=== PATIENT | female | born 1980 | race Caucasian/White ===

== ENCOUNTER 2019-03-31 22:02 | Emergency (ER) | payer OTHER ==
[~2019-03-31] VITALS: Ht 152.4 cm; Wt 56.7 kg
[2019-03-31 22:05] VITALS: BP_SYST 121
[2019-03-31] MEDS ORDERED: LIDOCAINE/EPI 2% 1:100000 20 ML VIAL IJ ONE (22:30)
[2019-03-31] MEDS ORDERED: BACITRACIN 1 GM OINT TP ONE (22:30)
[2019-04-01 00:37] VITALS: BP_SYST 121
== END 2019-04-01 00:37 | disposition home or self-care (01) ==
LOC: SED 22:02
DX: S01.81XA Laceration without foreign body of other part of head, initial encounter (principal); F10.129 Alcohol abuse with intoxication, unspecified; Y04.0XXA Assault by unarmed brawl or fight, initial encounter; Y93.89 Activity, other specified; Y92.89 Other specified places as the place of occurrence of the external cause; Y99.8 Other external cause status
CPT/HCPCS: 99283

== ENCOUNTER 2021-08-03 01:55 | Inpatient (IN) | payer MEDICAID, SELFPAY ==
[~2021-08-03] VITALS: Ht 154.9 cm; Wt 59.0 kg
[2021-08-03] VITALS (18 sets, daily range): BP systolic 91–139
--- NOTE | 2021-08-03 02:00 | NUR ---
Placed in room 2 . Placed on desk monitor, blood pressure machine and pulse oximeter. To gown for exam. Side rails up.
--- NOTE | 2021-08-03 02:16 | NUR ---
PT BIB BLS FROM [facility] C/O INCREASING GENERALIZED WEAKNESS, VOMITING COFFEE GROUND EMESIS XTODAY, +ABDOMINAL PAIN. PT HAS A HX OF ESOPHAGEAL VARICES, CIRRHOSIS, CKD.
--- NOTE | 2021-08-03 02:27 | NUR ---
# 20 gauge angiocath placed to LAC. Use of asceptic technique. Opsite placed over site. Blood return noted. Blood for lab drawn from site. Flushed with 10 cc of normal saline. No evidence of infiltration noted. Patient tolerated well.
[2021-08-03] MEDS ORDERED: OCTREOTIDE ACETATE 50 MCG/ML AMP IVP ONE (02:30)
[2021-08-03] MEDS ORDERED: PANTOPRAZOLE SODIUM 40 MG/VIAL (PROTONIX) IVP ONE (02:30)
[2021-08-03] MEDS ORDERED: PANTOPRAZOLE SODIUM 40 MG in NS 50 ML IV ONE (02:30)
[2021-08-03] MEDS ORDERED: ONDANSETRON HCL 4 MG/2 ML VIAL IVP ONE (02:30)
[2021-08-03] MEDS ORDERED: OCTREOTIDE ACETATE 1,250 MCG in NS 243.75 ML IV ONE (02:30)
--- NOTE | 2021-08-03 02:30 | NUR ---
Dr. Torrez at bedside for MSE.
--- NOTE | 2021-08-03 02:45 | NUR ---
# 20 gauge angiocath placed to RAC. Use of asceptic technique. Opsite placed over site. Blood return noted. Flushed with 10 cc of normal saline. No evidence of infiltration noted. Patient tolerated well.
[2021-08-03] MEDS ORDERED: PANTOPRAZOLE SODIUM 40 MG/VIAL (PROTONIX) ONE ×2 (02:58→07:16)
[2021-08-03 03:00] LABS: BASOPHILS % (AUTO) 0.1 % (0.0-2.0); EOSINOPHILS % (AUTO) 0.1 % (0.0-4.0); HEMATOCRIT 24.7 % (36-48); HEMOGLOBIN 8.5 g/dL (12.0-16.0); LYMPHOCYTES # (AUTO) 0.5 K/uL (1.0-5.5); LYMPHOCYTES % (AUTO) 13.1 % (20.5-51.5); MEAN CORPUSCULAR HEMOGLOBIN 33 pg (27-31); MEAN CORPUSCULAR HGB CONC 35 % (32-36); MEAN CORPUSCULAR VOLUME 96 fL (79.0-98.0); MONOCYTES # (AUTO) 0.3 K/uL (0.0-1.0); MONOCYTES % (AUTO) 9.5 % (1.7-9.3); NEUTROPHILS # (AUTO) 2.7 K/uL (1.8-7.7); NEUTROPHILS % (AUTO) 77.2 % (40.0-70.0); PLATELET COUNT (AUTO) 100 K/uL (130-430); RED BLOOD CELL COUNT(AUTO) 2.56 MIL/uL (4.2-6.2); RED CELL DISTRIBUTION WIDTH 17.6 % (9.0-15.0); WHITE BLOOD COUNT (AUTO) 3.5 K/uL (4.8-10.8)
[2021-08-03 03:06] LABS: CALCIUM 7.1 mg/dL (8.4-11.0); CHLORIDE 86 mmol/L (98-107); CREATININE 1.74 mg/dL (0.55-1.30); GLUCOSE 140 mg/dL (70-99); POTASSIUM 3.9 mmol/L (3.5-5.1); UREA NITROGEN, BLOOD 31 mg/dL (8-21)
[2021-08-03] MEDS ORDERED: OCTREOTIDE ACETATE 200 MCG/1 ML 5ML VIAL ONE ×2 (03:08→04:24)
[2021-08-03 03:10] LABS: INR 1.3 (0.8-1.2)
[2021-08-03 03:15] LABS: ALANINE AMINOTRANSFERASE 55 U/L (12-78); ANION GAP 7 (5-15); ASPARTATE AMINOTRANSFERASE 138 U/L (10-37); LIPASE 497 U/L (73-393)
[2021-08-03 03:20] LABS: GFR AFRICAN AMERICAN 41 mL/min (>90); PROTHROMBIN TIME 13.6 SECS (9.5-12.5)
[2021-08-03 03:22] LABS: SODIUM SERUM 119 mmol/L (136-145)
[2021-08-03] MEDS ORDERED: NACL 0.9% 1,000 ML IV ONE ×2 (03:30→07:00)
--- NOTE | 2021-08-03 03:30 | NUR ---
Patient's code status is FULL CODE paperwork completed and placed in chart.
[2021-08-03] MEDS ORDERED: ONDANSETRON HCL 4 MG/2 ML VIAL ONE (04:01)
[2021-08-03] MEDS ORDERED: METOCLOPRAMIDE HCL 10 MG/2 ML VIAL ONE (04:03)
[2021-08-03] MEDS ORDERED: METOCLOPRAMIDE HCL 10 MG/2 ML VIAL IVP ONE (04:15)
[2021-08-03] MEDS ORDERED: NS 500 ML IV ONE ×2 (04:30→05:45)
[2021-08-03] MEDS ORDERED: D5NS 1,000 ML IV SCH (05:30)
[2021-08-03] MEDS ORDERED: ONDANSETRON HCL 4 MG/2 ML VIAL IVP PRN (05:30)
[2021-08-03] MEDS ORDERED: MORPHINE 2 MG/ML INJ. SYRINGE IVP ONE (05:30)
--- NOTE | 2021-08-03 05:59 | NUR ---
Patient will be admitted to care of DR. COLBERT. Admitted to ICU. Will go to room 2. Belongings list completed. Complete and up to date summary report printed. SBAR report to be given at bedside with opportunity for questions.
--- NOTE | 2021-08-03 06:06 | NUR ---
Medication reconciliation UNABLE TO BE completed. PT WILL PROVIDE LIST LATER WHEN FAMILY IS AWAKE.
[2021-08-03] MEDS ORDERED: NOREPINEPHRINE BITARTRATE 4 MG in NS 246 ML IV ONE (06:15)
[2021-08-03] MEDS ORDERED: NOREPINEPHRINE 4 MG/4 ML VIAL IV ONE (06:18)
[2021-08-03] MEDS ORDERED: cefTRIAXone 1 GM IVPB PREMIX 50 ML IV ONE (06:45)
[2021-08-03] MEDS ORDERED: ALBUMIN HUMAN 25% 50 ML IV ONE (07:00)
[2021-08-03] MEDS ORDERED: PHYTONADIONE 10 MG in NS 50 ML IV ONE (07:00)
--- NOTE | 2021-08-03 07:02 | NUR ---
Transfer to ICU 2 via ACLS protocol. Licensed nurse present. IV present no signs or symptoms of infiltration.
--- NOTE | 2021-08-03 07:16 | NUR ---
PATIENT BROUGHT TO ICU BED#2, PRIMARY NURSE AT BEDSIDE RECEIVING REPORT.
[2021-08-03 07:19] LABS: HEMOGLOBIN 7.5 g/dL (12.0-16.0); MEAN CORPUSCULAR HEMOGLOBIN 34 pg (27-31); MEAN CORPUSCULAR HGB CONC 34 % (32-36); MEAN CORPUSCULAR VOLUME 100 fL (79.0-98.0); PLATELET COUNT (AUTO) 81 K/uL (130-430); RED BLOOD CELL COUNT(AUTO) 2.19 MIL/uL (4.2-6.2); RED CELL DISTRIBUTION WIDTH 18.5 % (9.0-15.0); WHITE BLOOD COUNT (AUTO) 4.1 K/uL (4.8-10.8)
--- NOTE | 2021-08-03 07:20 | NUR ---
Received bedside report from CORPORATE RECRUITER. Pt is awake, alert, oriented, answering questions appropriately. No acute distress noted.
--- NOTE | 2021-08-03 07:38 | NUR ---
Called Dr. Guan with a consult,spoke with Rosie from the exchange
[2021-08-03] MEDS: PANTOPRAZOLE SODIUM 40 MG in NS 50 ML IV SCH ×4 (07:43→23:10)
[2021-08-03] MEDS ORDERED: SIMETHICONE 40 MG/0.6 ML ML ONE (08:36)
[2021-08-03] MEDS: BENZOCAINE 20% 0.5mL UD SPRAY MM ONE ×2 (08:44→09:38)
[2021-08-03] MEDS: MIDAZOLAM HCL 5 MG/5 ML VIAL ONE ×4 (08:46→09:38)
[2021-08-03] MEDS: MEPERIDINE 100 MG INJ. 100 MG/ML VIAL ONE ×3 (08:46→09:38)
--- NOTE | 2021-08-03 08:57 | NUR ---
EGD done at bedside with Dr Bustamante. Scope removed at 0858. Pt placed on 2LNC, still sedated. Monitoring
[2021-08-03] MEDS ORDERED: OCTREOTIDE ACETATE 1,250 MCG in NS 243.75 ML IV SCH ×2 (09:00→16:30)
--- NOTE | 2021-08-03 09:39 | NUR ---
ALL STOCK MEDS GIVEN BY GI TEAM FOR EGD THAT WAS COMPLETED AT BEDSIDE.
--- NOTE | 2021-08-03 11:14 | NUR ---
Dr Pate rounding at bedside, updated on pt status, new order received.
--- NOTE | 2021-08-03 19:25 | NUR ---
PM SHIFT ASSESSMENT Patient is awake and alert. SR noted on monitor. Skin warm and dry. IVF infusing, no signs of infiltration noted. Safety precautions in place, call light within reach. Will continue to monitor.
[2021-08-03] MEDS ORDERED: ACETAMINOPHEN 325 MG TABLET PO ONE (19:45)
--- NOTE | 2021-08-03 20:35 | NUR ---
BLOOD TRANSFUSION ENDED Blood transfusion has ended at this time, no adverse reactions noted. VSS. Will continue to monitor.
[2021-08-03] MEDS: D5NS 1,000 ML IV SCH (20:49)
[2021-08-03] MEDS: ONDANSETRON HCL 4 MG/2 ML VIAL IVP PRN (22:25)
[2021-08-04] VITALS (19 sets, daily range): BP systolic 119–142
[2021-08-04] MEDS: PANTOPRAZOLE SODIUM 40 MG in NS 50 ML IV SCH ×5 (03:50→20:15)
[2021-08-04] MEDS: D5NS 1,000 ML IV SCH ×2 (03:50→12:30)
[2021-08-04 06:44] LABS: INR 1.4 (0.8-1.2); PROTHROMBIN TIME 14.4 SECS (9.5-12.5)
[2021-08-04] MEDS ORDERED: PANTOPRAZOLE SODIUM 40 MG/VIAL (PROTONIX) ONE (08:20)
[2021-08-04 08:21] LABS: BASOPHILS % (AUTO) 0.9 % (0.0-2.0); EOSINOPHILS % (AUTO) 0.3 % (0.0-4.0); HEMATOCRIT 22.3 % (36-48); HEMOGLOBIN 7.8 g/dL (12.0-16.0); LYMPHOCYTES # (AUTO) 0.9 K/uL (1.0-5.5); LYMPHOCYTES % (AUTO) 16.2 % (20.5-51.5); MEAN CORPUSCULAR HEMOGLOBIN 34 pg (27-31); MEAN CORPUSCULAR HGB CONC 35 % (32-36); MEAN CORPUSCULAR VOLUME 99 fL (79.0-98.0); MONOCYTES # (AUTO) 1.3 K/uL (0.0-1.0); MONOCYTES % (AUTO) 22.6 % (1.7-9.3); NEUTROPHILS # (AUTO) 3.3 K/uL (1.8-7.7); PLATELET COUNT (AUTO) 65 K/uL (130-430); RED BLOOD CELL COUNT(AUTO) 2.26 MIL/uL (4.2-6.2); RED CELL DISTRIBUTION WIDTH 17.2 % (9.0-15.0); WHITE BLOOD COUNT (AUTO) 5.5 K/uL (4.8-10.8)
[2021-08-04 08:39] LABS: POTASSIUM 3.7 mmol/L (3.5-5.1)
[2021-08-04 08:44] LABS: TOTAL IRON BIND. CAPACITY 118 ug/dL (250-450)
[2021-08-04 08:53] LABS: CALCIUM 6.6 mg/dL (8.4-11.0)
--- NOTE | 2021-08-04 09:42 | NUR ---
Nutrition Update Jp Scale 18 noted. Pt admitted for upper GI bleed. Diet: NPO BMI: 24.6 kg/m2 RD to follow per nutrition care standards.
[2021-08-04] MEDS ORDERED: ACETAMINOPHEN 325 MG TABLET ONE (11:15)
[2021-08-04 12:15] LABS: HEMOGLOBIN 7.7 g/dL (12.0-16.0); LYMPHOCYTES # (AUTO) 0.7 K/uL (1.0-5.5); PLATELET COUNT (AUTO) 50 K/uL (130-430)
[2021-08-04] MEDS: LIDOCAINE PATCH 5% 1 EA TP PRN (12:50)
[2021-08-04 12:58] LABS: BASOPHILS % (AUTO) 0.5 % (0.0-2.0); EOSINOPHILS % (AUTO) 0.5 % (0.0-4.0); LYMPHOCYTES % (AUTO) 14.9 % (20.5-51.5); MEAN CORPUSCULAR HEMOGLOBIN 35 pg (27-31); MEAN CORPUSCULAR HGB CONC 35 % (32-36); MEAN CORPUSCULAR VOLUME 100 fL (79.0-98.0); MONOCYTES % (AUTO) 20.6 % (1.7-9.3); NEUTROPHILS % (AUTO) 63.5 % (40.0-70.0); RED BLOOD CELL COUNT(AUTO) 2.21 MIL/uL (4.2-6.2); RED CELL DISTRIBUTION WIDTH 17.3 % (9.0-15.0); WHITE BLOOD COUNT (AUTO) 4.7 K/uL (4.8-10.8)
[2021-08-04] MEDS ORDERED: NALOXONE HCL 0.4 MG/ML AMP (NARCAN) IVP PRN (14:15)
[2021-08-04] MEDS: HYDROcodone/ACETAMIN 5-325 MG TAB (NORCO/ VICODIN) PO PRN ×2 (14:22→20:15)
[2021-08-04] MEDS: ONDANSETRON HCL 4 MG/2 ML VIAL IVP PRN (15:38)
--- NOTE | 2021-08-04 15:58 | NUR ---
0800 PT RECIEVED AWAKE ALERT ORIENTED X 4 IN ZERO DIESTRESS ON PROTONIX AND OCTRETIDE DRIPS/DENIES N /V 0R BLOODY STOOL FOR 12 HOURS/PT VS STABLE, AMBULATORY AND IN ZERO DISTRESS//MW
[2021-08-04 18:39] LABS: BASOPHILS % (AUTO) 0.4 % (0.0-2.0); EOSINOPHILS % (AUTO) 0.2 % (0.0-4.0); HEMOGLOBIN 7.9 g/dL (12.0-16.0); LYMPHOCYTES # (AUTO) 0.5 K/uL (1.0-5.5); LYMPHOCYTES % (AUTO) 12.5 % (20.5-51.5); MEAN CORPUSCULAR HEMOGLOBIN 39 pg (27-31); MEAN CORPUSCULAR HGB CONC 37 % (32-36); MONOCYTES # (AUTO) 0.8 K/uL (0.0-1.0); MONOCYTES % (AUTO) 19.4 % (1.7-9.3); NEUTROPHILS # (AUTO) 2.7 K/uL (1.8-7.7); NEUTROPHILS % (AUTO) 67.5 % (40.0-70.0); WHITE BLOOD COUNT (AUTO) 3.9 K/uL (4.8-10.8)
[2021-08-04 18:51] LABS: RED BLOOD CELL COUNT(AUTO) 1.99 MIL/uL (4.2-6.2)
[2021-08-04 19:02] LABS: HEMATOCRIT 21.2 % (36-48); PLATELET COUNT (AUTO) 47 K/uL (130-430)
[2021-08-04 19:03] LABS: MEAN CORPUSCULAR VOLUME 106 fL (79.0-98.0)
--- NOTE | 2021-08-04 20:58 | NUR ---
Patient awake alert sitting up in bed verbally indicative , assist for position change / chest - movement symmetrical also unlabored procedures explained procedure tolerated / .
--- NOTE | 2021-08-04 20:59 | NUR ---
NORCO PO Tablet 5/325 MG administer for ACUTE Pain Generalized , assist as needed continue to monitor / .
--- NOTE | 2021-08-04 21:15 | NUR ---
Patient transfer to TELEMETRY UNIT & SBAR Report given to Receiving RN .
--- NOTE | 2021-08-04 21:20 | NUR ---
TRANSFER OF CARE Pt brought from ICU in via [facility] to room 118C by RN. Received SBAR report. Pt oriented to room. No s/s of acute distress. Fall and safety precautions in place with bed in lowest position and call light within reach. Will continue to monitor
[2021-08-05] MEDS: ONDANSETRON HCL 4 MG/2 ML VIAL IVP PRN ×4 (00:03→20:53)
[2021-08-05] MEDS: D5NS 1,000 ML IV SCH ×3 (00:05→17:57)
[2021-08-05 00:55] LABS: BASOPHILS % (AUTO) 0.2 % (0.0-2.0); EOSINOPHILS % (AUTO) 0.3 % (0.0-4.0); HEMOGLOBIN 7.7 g/dL (12.0-16.0); LYMPHOCYTES # (AUTO) 0.4 K/uL (1.0-5.5); LYMPHOCYTES % (AUTO) 11.9 % (20.5-51.5); MEAN CORPUSCULAR HEMOGLOBIN 39 pg (27-31); MEAN CORPUSCULAR HGB CONC 36 % (32-36); MEAN CORPUSCULAR VOLUME 107 fL (79.0-98.0); MONOCYTES # (AUTO) 0.7 K/uL (0.0-1.0); MONOCYTES % (AUTO) 18.3 % (1.7-9.3); NEUTROPHILS # (AUTO) 2.6 K/uL (1.8-7.7); NEUTROPHILS % (AUTO) 69.3 % (40.0-70.0); RED CELL DISTRIBUTION WIDTH 18.2 % (9.0-15.0); WHITE BLOOD COUNT (AUTO) 3.7 K/uL (4.8-10.8)
[2021-08-05 01:24] LABS: HEMATOCRIT 21.4 % (36-48); PLATELET COUNT (AUTO) 45 K/uL (130-430)
--- NOTE | 2021-08-05 03:15 | NUR ---
RN rounds Pt is sleeping. No s/s of acute distress. No needs at this time. Fall and safety precautions in place. Will continue to monitor
[2021-08-05] MEDS: PANTOPRAZOLE SODIUM 40 MG in NS 50 ML IV SCH ×4 (03:24→20:53)
--- NOTE | 2021-08-05 06:48 | NUR ---
Closing note Pt is awake, assisted to the bathroom. No s/s of acute distress. IV sites are intact and patent with fluids running at ordered rate. Fall and safety precautions in place with bed in lowest position and call light within reach. All needs met throughout shift. Will continue to monitor until endorsed to day shift
[2021-08-05] MEDS: HYDROcodone/ACETAMIN 5-325 MG TAB (NORCO/ VICODIN) PO PRN ×3 (07:00→22:08)
[2021-08-05 08:00] VITALS: BP_SYST 151
--- NOTE | 2021-08-05 08:00 | NUR ---
pt awake,alert,vss,resting in bed,IVF continue infusing and on continous protonix drip.needs attended call light & personal items within pt reach,safety maintained.
[2021-08-05 08:03] LABS: CREATININE 1.61 mg/dL (0.55-1.30); POTASSIUM 3.5 mmol/L (3.5-5.1)
[2021-08-05 08:31] LABS: BASOPHILS % (AUTO) 0.5 % (0.0-2.0); EOSINOPHILS % (AUTO) 0.9 % (0.0-4.0); HEMATOCRIT 22.4 % (36-48); HEMOGLOBIN 7.7 g/dL (12.0-16.0); LYMPHOCYTES # (AUTO) 0.9 K/uL (1.0-5.5); LYMPHOCYTES % (AUTO) 26.3 % (20.5-51.5); MEAN CORPUSCULAR HEMOGLOBIN 34 pg (27-31); MEAN CORPUSCULAR HGB CONC 34 % (32-36); MEAN CORPUSCULAR VOLUME 100 fL (79.0-98.0); MONOCYTES # (AUTO) 0.7 K/uL (0.0-1.0); MONOCYTES % (AUTO) 19.4 % (1.7-9.3); NEUTROPHILS # (AUTO) 1.8 K/uL (1.8-7.7); NEUTROPHILS % (AUTO) 52.9 % (40.0-70.0); RED BLOOD CELL COUNT(AUTO) 2.24 MIL/uL (4.2-6.2); RED CELL DISTRIBUTION WIDTH 17.4 % (9.0-15.0); WHITE BLOOD COUNT (AUTO) 3.5 K/uL (4.8-10.8)
[2021-08-05 08:34] LABS: PLATELET COUNT (AUTO) 39 K/uL (130-430)
[2021-08-05 09:46] LABS: CALCIUM 7.3 mg/dL (8.4-11.0)
--- NOTE | 2021-08-05 10:20 | NUR ---
CONSULT HEMATOLOGY LOW PLATELET BANDAR HERNANDEZ [phone] S/W JULIAN TAPIA
--- NOTE | 2021-08-05 11:00 | NUR ---
pt vomitted 300 ml yellow emesis,abdomen distended,give zofran 4 mg IV as prn order for nausea.
[2021-08-05 12:00] VITALS: BP_SYST 151
[2021-08-05] MEDS ORDERED: DIATR MEGLU/DIATRIZ SOD 30 ML SOLUTION PO ONE (13:57)
--- NOTE | 2021-08-05 14:00 | NUR ---
pt has constant nausea,start pt on regllan IV q8 hrs as per dr funez.
[2021-08-05] MEDS: METOCLOPRAMIDE HCL 10 MG/2 ML VIAL IVP SCH ×2 (14:08→22:08)
--- NOTE | 2021-08-05 14:30 | NUR ---
c/o pain in back and abdomen,give norco 1 tab po as prn order for pain and applied lidoderm patch to the back
[2021-08-05] MEDS: LIDOCAINE PATCH 5% 1 EA TP PRN (14:38)
[2021-08-05 16:00] VITALS: BP_SYST 151
--- NOTE | 2021-08-05 16:00 | NUR ---
vss,pt ambulated to bathroom,no c/o pain or discomfort.safety maintained.
--- NOTE | 2021-08-05 18:07 | NUR ---
pt back from CT,no acute distress noted.continue IVF and protonix drip.
[2021-08-05 20:00] VITALS: BP_SYST 127
--- NOTE | 2021-08-05 22:00 | NUR ---
ROUNDING NOTES Patient resting in bed - no s/s pain or distress noted. Respirations even and unlabored - head of bed elevated. IV site patent - no s/s redness noted. Bed locked and in lowest position. Call light within reach.
[2021-08-06] VITALS: BP_SYST 125
[2021-08-06] MEDS: PANTOPRAZOLE SODIUM 40 MG in NS 50 ML IV SCH ×2 (00:45→05:13)
[2021-08-06] MEDS: METOCLOPRAMIDE HCL 10 MG/2 ML VIAL IVP SCH ×3 (05:11→21:02)
[2021-08-06] MEDS: D5NS 1,000 ML IV SCH ×2 (05:13→15:34)
[2021-08-06 07:45] LABS: ALBUMIN 1.8 g/dL (3.4-4.8); CALCIUM 7.7 mg/dL (8.4-11.0); CREATININE 1.62 mg/dL (0.55-1.30); POTASSIUM 3.4 mmol/L (3.5-5.1); TOTAL BILIRUBIN 3.2 mg/dL (0.0-1.0)
[2021-08-06 08:44] LABS: BASOPHILS % (AUTO) 1.1 % (0.0-2.0); EOSINOPHILS # (AUTO) 0.1 K/uL (0.0-0.4); EOSINOPHILS % (AUTO) 2.7 % (0.0-4.0); HEMOGLOBIN 7.5 g/dL (12.0-16.0); LYMPHOCYTES # (AUTO) 0.9 K/uL (1.0-5.5); LYMPHOCYTES % (AUTO) 30.5 % (20.5-51.5); MEAN CORPUSCULAR HEMOGLOBIN 34 pg (27-31); MEAN CORPUSCULAR HGB CONC 34 % (32-36); MEAN CORPUSCULAR VOLUME 100 fL (79.0-98.0); MONOCYTES # (AUTO) 0.5 K/uL (0.0-1.0); MONOCYTES % (AUTO) 17.2 % (1.7-9.3); NEUTROPHILS # (AUTO) 1.5 K/uL (1.8-7.7); NEUTROPHILS % (AUTO) 48.5 % (40.0-70.0); RED BLOOD CELL COUNT(AUTO) 2.19 MIL/uL (4.2-6.2); RED CELL DISTRIBUTION WIDTH 17.6 % (9.0-15.0)
[2021-08-06 08:46] LABS: HEMATOCRIT 21.9 % (36-48); PLATELET COUNT (AUTO) 40 K/uL (130-430)
[2021-08-06] MEDS: PANTOPRAZOLE SODIUM 40 MG TAB PO SCH ×2 (09:00→21:02)
[2021-08-06] MEDS ORDERED: FOLIC ACID 1 MG TABLET PO ONE (10:45)
[2021-08-06] MEDS ORDERED: MULTIVITAMINS TAB 1 TABLET PO ONE (10:45)
[2021-08-06] MEDS ORDERED: THIAMINE HCL 100 MG TABLET PO ONE (10:45)
[2021-08-06] MEDS: HYDROcodone/ACETAMIN 5-325 MG TAB (NORCO/ VICODIN) PO PRN ×4 (11:16→18:43)
[2021-08-06] MEDS: ONDANSETRON HCL 4 MG/2 ML VIAL IVP PRN (11:17)
[2021-08-06 15:39] VITALS: BP_SYST 132
[2021-08-06 16:38] VITALS: BP_SYST 134
[2021-08-06 20:00] VITALS: BP_SYST 118
--- NOTE | 2021-08-06 20:00 | NUR ---
Opening notes Pt AAOx4, VSS, afebrile. Pt had yellow emesis approx 150ml. Reglan IVP administered as ordered. IVF infusing L. AC 20G, clear and patent. Pt ambulates to bathroom. Call light within reach. Bed low, locked, siderails up x2. To monitor.
[2021-08-07] VITALS: BP_SYST 132
[2021-08-07] MEDS: HYDROcodone/ACETAMIN 5-325 MG TAB (NORCO/ VICODIN) PO PRN ×3 (00:21→21:59)
[2021-08-07] MEDS: D5NS 1,000 ML IV SCH ×3 (03:00→21:58)
[2021-08-07 03:06] LABS: HEPATITIS A AB, IgM Negative (Negative); HEPATITIS B CORE AB, IgM Negative (Negative); HEPATITIS B SURFACE AG Negative (Negative)
[2021-08-07] MEDS: METOCLOPRAMIDE HCL 10 MG/2 ML VIAL IVP SCH ×3 (05:47→21:58)
--- NOTE | 2021-08-07 05:50 | NUR ---
Closing notes Pt asleep, easily awakens, no s/s distress noted. Reglan IVP administered as ordered L. AC 20G clear and patent. IVF infusing at ordered rate. R. abd gauze dressing C/D/I. Call light within reach. To endorse to AM nurse.
[2021-08-07] MEDS: PANTOPRAZOLE SODIUM 40 MG TAB PO SCH ×2 (08:25→21:58)
[2021-08-07] MEDS: MULTIVITAMINS TAB 1 TABLET PO SCH (08:25)
[2021-08-07] MEDS: FOLIC ACID 1 MG TABLET PO SCH (08:25)
[2021-08-07] MEDS: THIAMINE HCL 100 MG TABLET PO SCH (08:25)
[2021-08-07 08:32] VITALS: BP_SYST 129
[2021-08-07] MEDS: ONDANSETRON HCL 4 MG/2 ML VIAL IVP PRN (09:47)
[2021-08-07 12:45] VITALS: BP_SYST 119
[2021-08-07 17:04] VITALS: BP_SYST 116
--- NOTE | 2021-08-07 19:30 | NUR ---
OPENING NOTE PATIENT IS ALERT ORIENTED X4 BREATHING ROOM AIR NO SIGNS OF PAIN OR DISTRESS. IV SITE PATENT AND INTACT. BED IS LOW AND CALL LIGHT IN REACH.
[2021-08-07 20:00] VITALS: BP_SYST 120
[2021-08-08] VITALS: BP_SYST 124
--- NOTE | 2021-08-08 | NUR ---
PATIENT IS ASLEEP NO SIGNS OF PAIN OR DISTRESS. BED IS LOW AND CALL LIGHT IN REACH.
--- NOTE | 2021-08-08 04:00 | NUR ---
PATIENT IS ASLEEP NO SIGNS OF PAIN AND DISTRESS. BED IS LOW AND CALL LIGHT IN REACH.
[2021-08-08] MEDS: METOCLOPRAMIDE HCL 10 MG/2 ML VIAL IVP SCH (06:17)
[2021-08-08] MEDS: D5NS 1,000 ML IV SCH ×2 (06:20→16:45)
[2021-08-08 07:02] LABS: CALCIUM 7.6 mg/dL (8.4-11.0); CREATININE 1.79 mg/dL (0.55-1.30); POTASSIUM 3.3 mmol/L (3.5-5.1)
--- NOTE | 2021-08-08 07:28 | NUR ---
CLOSING NOTE PATIENT IS ASLEEP ALERT ORIENTED X4 BREATHING ROOM AIR NO SIGNS OF PAIN OR DISTRESS. IV SITE PATENT AND INTACT IN RW. BED IS LOW AND CALL LIGHT IN REACH.
[2021-08-08 08:16] VITALS: BP_SYST 111
--- NOTE | 2021-08-08 08:23 | NUR ---
OPENING NOTES PATIENT AAOX 4. VITALS SIGNS STABLE. AFEBRILE. NO PAIN NOR DISTRESS NOTED. HAS IV ACCESS ON THE RT FOREARM WITH D5NS AT 100CC/HR INFUSING ON WELL. CALL LIGHTS WITHIN REACH. BED LOW POSITION, ALARMED AND LOCKED. WILL CONTINUE TO MONITOR PATIENTS STATUS.
--- NOTE | 2021-08-08 08:30 | NUR ---
DR COLBERT NOTIFIED OF H/H AND PLATELET LEVEL. SAID NOTIFY DR GOETZ.
[2021-08-08 08:42] LABS: BASOPHILS % (AUTO) 0.9 % (0.0-2.0); EOSINOPHILS # (AUTO) 0.1 K/uL (0.0-0.4); EOSINOPHILS % (AUTO) 2.8 % (0.0-4.0); HEMOGLOBIN 7.4 g/dL (12.0-16.0); LYMPHOCYTES % (AUTO) 30.7 % (20.5-51.5); MEAN CORPUSCULAR HEMOGLOBIN 35 pg (27-31); MEAN CORPUSCULAR HGB CONC 35 % (32-36); MEAN CORPUSCULAR VOLUME 101 fL (79.0-98.0); MONOCYTES # (AUTO) 0.5 K/uL (0.0-1.0); MONOCYTES % (AUTO) 16.1 % (1.7-9.3); NEUTROPHILS # (AUTO) 1.7 K/uL (1.8-7.7); NEUTROPHILS % (AUTO) 49.5 % (40.0-70.0); RED CELL DISTRIBUTION WIDTH 18.1 % (9.0-15.0); WHITE BLOOD COUNT (AUTO) 3.4 K/uL (4.8-10.8)
[2021-08-08 08:51] LABS: HEMATOCRIT 21.3 % (36-48); PLATELET COUNT (AUTO) 46 K/uL (130-430)
[2021-08-08] MEDS: HYDROcodone/ACETAMIN 5-325 MG TAB (NORCO/ VICODIN) PO PRN ×3 (09:11→23:03)
[2021-08-08] MEDS: FOLIC ACID 1 MG TABLET PO SCH (09:12)
[2021-08-08] MEDS: THIAMINE HCL 100 MG TABLET PO SCH (09:12)
[2021-08-08] MEDS: PANTOPRAZOLE SODIUM 40 MG TAB PO SCH ×2 (09:12→20:56)
[2021-08-08] MEDS: MULTIVITAMINS TAB 1 TABLET PO SCH (09:12)
--- NOTE | 2021-08-08 09:15 | NUR ---
due meds given voided at the bathroom assisted.
[2021-08-08 09:30] LABS: FOLATE (FOLIC ACID) 2.6 ng/mL (>3.0)
--- NOTE | 2021-08-08 12:40 | NUR ---
Dietitian Recommendations *Recommend: advance diet to GI soft low fat. *Encourage PO intake q meal. Please see Nutritional Assessment for details. KIEL CORTES
--- NOTE | 2021-08-08 13:00 | NUR ---
ALBUMIN IV 50 ML GIVEN ORDERED.
[2021-08-08] MEDS: ALBUMIN HUMAN 25% 50 ML IV SCH ×2 (13:16→17:39)
[2021-08-08 16:00] VITALS: BP_SYST 124
--- NOTE | 2021-08-08 16:30 | NUR ---
c/o of pain pt c/ of abd pain.04/26. medicated with norco as ordered. pt c/o of nausea. medicated with zofran as ordered. ivf infusing well. no s/ sof infiltartion noted.poc discussed with pt verbalized understanding
[2021-08-08] MEDS: ONDANSETRON HCL 4 MG/2 ML VIAL IVP PRN ×2 (16:37→23:03)
--- NOTE | 2021-08-08 18:57 | NUR ---
CLOSING NOTES PT STABLE NOTIN ACUTE DISTRESS. IVF INFUSING WELL. SAFETY/FALL PRECAUTIONS IN PLACE. CALL LIGHT WITHIN REACH.
--- NOTE | 2021-08-08 19:35 | NUR ---
ROUNDS PATIENT RESTING COMFORTABLY IN BED, NOT IN DISTRESS, VITALS STABLE. NO SIGNS OF ANY PAIN AND DISCOMFORT NOTED. ASSESSMENT DONE AND DOCUMENTED. SEE FLOWSHEET. NEEDS ATTENDED TO. SAFETY MEASURES IN PLACED. CALL LIGHT PLACED WITHIN REACH.
[2021-08-08 20:00] VITALS: BP_SYST 127
[2021-08-09] VITALS: BP_SYST 119
--- NOTE | 2021-08-09 00:12 | NUR ---
PATIENT RESTING: Patient resting quietly. No acute distress noted. Vital signs within normal range.
--- NOTE | 2021-08-09 02:13 | NUR ---
ROUNDS PATIENT ASLEEP, RESPIRATIONS EVEN AND UNLABORED, WILL CONTINUE TO MONITOR.
[2021-08-09] MEDS: ONDANSETRON HCL 4 MG/2 ML VIAL IVP PRN ×3 (05:25→18:24)
[2021-08-09] MEDS: D5NS 1,000 ML IV SCH ×3 (05:25→20:29)
[2021-08-09] MEDS: HYDROcodone/ACETAMIN 5-325 MG TAB (NORCO/ VICODIN) PO PRN ×3 (05:25→18:24)
[2021-08-09] MEDS: FOLIC ACID 1 MG TABLET PO SCH (09:00)
[2021-08-09] MEDS: MULTIVITAMINS TAB 1 TABLET PO SCH (09:00)
[2021-08-09] MEDS: THIAMINE HCL 100 MG TABLET PO SCH (09:00)
[2021-08-09] MEDS: PANTOPRAZOLE SODIUM 40 MG TAB PO SCH ×2 (09:00→20:28)
[2021-08-09 11:01] LABS: CALCIUM 7.5 mg/dL (8.4-11.0); CREATININE 1.8 mg/dL (0.55-1.30); POTASSIUM 3.9 mmol/L (3.5-5.1)
[2021-08-09 14:21] VITALS: BP_SYST 138
[2021-08-09 17:41] VITALS: BP_SYST 115
[2021-08-09 19:40] VITALS: BP_SYST 126
--- NOTE | 2021-08-09 19:45 | NUR ---
INITIAL NOTE AT INITIAL ASSESSMENT, PATIENT IS RESTING IN BED, STABLE, NO SIGNS OF RESPIRATORY DISTRESS. PATIENT VERBALIZES NO PAIN. PLAN OF CARE FOR THE EVENING IS COMMUNICATED WITH THE PATIENT. PATIENT DEMONSTRATES CORRECT USAGE OF CALL LIGHT AT THIS TIME. BED IS LOCKED, ALARMED, AND AT THE LOWEST LEVEL. FALL SAFETY EDUCATION PROVIDED. FALL AND SAFETY PRECAUTIONS WILL BE TAKEN THROUGHOUT THE SHIFT.
[2021-08-10] VITALS: BP_SYST 134
[2021-08-10] MEDS: ONDANSETRON HCL 4 MG/2 ML VIAL IVP PRN ×3 (01:36→15:22)
[2021-08-10] MEDS: HYDROcodone/ACETAMIN 5-325 MG TAB (NORCO/ VICODIN) PO PRN ×4 (01:36→22:14)
--- NOTE | 2021-08-10 06:20 | NUR ---
CLOSING NOTE PATIENT DID NOT EXPERIENCE ANY NAUSEA OR VOMITING DURING THE NIGHT. PATIENT SLEPT WELL THROUGHOUT THE SHIFT, NO SHORTNESS OF BREATH NOTED. AT THIS TIME, PATIENT IS RESTING IN BED, STABLE, NO SIGNS OF RESPIRATORY DISTRESS. CALL LIGHT IS WITHIN REACH. BED IS LOCKED, ALARMED, AND AT THE LOWEST LEVEL. FALL, SAFETY, AND RESPIRATORY PRECAUTIONS HAVE BEEN TAKEN THROUGHOUT THE SHIFT. WILL CONTINUE TO MONITOR UNTIL SHIFT REPORT IS GIVEN AT BEDSIDE TO AM NURSE.
[2021-08-10] MEDS: D5NS 1,000 ML IV SCH ×2 (06:45→22:14)
[2021-08-10 08:00] VITALS: BP_SYST 127
[2021-08-10] MEDS: FOLIC ACID 1 MG TABLET PO SCH (08:01)
[2021-08-10] MEDS: THIAMINE HCL 100 MG TABLET PO SCH (08:01)
[2021-08-10] MEDS: MULTIVITAMINS TAB 1 TABLET PO SCH (08:01)
[2021-08-10] MEDS: PANTOPRAZOLE SODIUM 40 MG TAB PO SCH ×2 (08:01→22:12)
[2021-08-10 09:38] LABS: EOSINOPHILS # (AUTO) 0.1 K/uL (0.0-0.4); EOSINOPHILS % (AUTO) 2.3 % (0.0-4.0); HEMOGLOBIN 7.3 g/dL (12.0-16.0); LYMPHOCYTES # (AUTO) 1.3 K/uL (1.0-5.5); LYMPHOCYTES % (AUTO) 28.5 % (20.5-51.5); MEAN CORPUSCULAR HEMOGLOBIN 35 pg (27-31); MEAN CORPUSCULAR HGB CONC 34 % (32-36); MEAN CORPUSCULAR VOLUME 103 fL (79.0-98.0); MONOCYTES # (AUTO) 0.6 K/uL (0.0-1.0); MONOCYTES % (AUTO) 13.5 % (1.7-9.3); NEUTROPHILS # (AUTO) 2.4 K/uL (1.8-7.7); NEUTROPHILS % (AUTO) 54.7 % (40.0-70.0); PLATELET COUNT (AUTO) 54 K/uL (130-430); RED BLOOD CELL COUNT(AUTO) 2.11 MIL/uL (4.2-6.2); RED CELL DISTRIBUTION WIDTH 19.3 % (9.0-15.0); WHITE BLOOD COUNT (AUTO) 4.4 K/uL (4.8-10.8)
[2021-08-10 09:50] LABS: HEMATOCRIT 21.8 % (36-48)
[2021-08-10] MEDS: ALBUMIN HUMAN 25% 50 ML IV SCH ×3 (10:08→17:07)
[2021-08-10 11:23] VITALS: BP_SYST 101
--- NOTE | 2021-08-10 12:12 | NUR ---
Lena Bailey for CBC result Addendum: 08/10/21 at 1242 by Zeinab Mcleod RN DR. Trujillo called back no blood transfusion
[2021-08-10 15:21] VITALS: BP_SYST 127
--- NOTE | 2021-08-10 17:00 | NUR ---
IV RE-INSERTION: Complaining of bleeding to IV site. Restarted on left fore arm g.22 Successful after 1 attempts. Resumed current IVF , Will observe for any signs of infiltration.
[2021-08-10 19:25] VITALS: BP_SYST 118
--- NOTE | 2021-08-10 19:30 | NUR ---
INITIAL NOTE AT INITIAL ASSESSMENT, PATIENT IS RESTING IN BED, STABLE, NO SIGNS OF RESPIRATORY DISTRESS. PATIENT VERBALIZES NO PAIN. PLAN OF CARE FOR THE EVENING IS COMMUNICATED WITH THE PATIENT. PATIENT DEMONSTRATES CORRECT USAGE OF CALL LIGHT AT THIS TIME. BED IS LOCKED, ALARMED, AND AT THE LOWEST LEVEL. FALL AND SAFETY EDUCATION PROVIDED. FALL AND SAFETY PRECAUTIONS WILL BE TAKEN THROUGHOUT THE SHIFT.
--- NOTE | 2021-08-10 22:35 | NUR ---
ENDORSEMENT OF CARE SBAR REPORT GIVEN AT BEDSIDE TO RNKEVIN. AT THIS TIME, PATIENT IS RESTING IN BED, STABLE, NO SIGNS OF RESPIRATORY DISTRESS. CALL LIGHT WITHIN REACH, BED IS LOCKED, ALARMED, AND AT THE LOWEST LEVEL. FALL AND SAFETY PRECAUTIONS HAVE BEEN IN PLACE THROUGHOUT THE SHIFT.
--- NOTE | 2021-08-10 22:45 | NUR ---
Pt received in good condition from previous RN. Pt A+O*4, mood pleasant and cooperative, and in no apparent distress. Pt turns self. IV site intact. No c/o pain/discomfort. Call light and belongings in reach; Bed: low position, wheels locked; SR up at HOB, HOB elevated approx. 30 degrees.
[2021-08-11] MEDS: HYDROcodone/ACETAMIN 5-325 MG TAB (NORCO/ VICODIN) PO PRN ×3 (05:45→21:47)
[2021-08-11] MEDS: ONDANSETRON HCL 4 MG/2 ML VIAL IVP PRN ×2 (05:49→12:56)
[2021-08-11] MEDS: D5NS 1,000 ML IV SCH ×2 (05:52→14:30)
[2021-08-11 07:09] LABS: CALCIUM 7.7 mg/dL (8.4-11.0); CREATININE 1.8 mg/dL (0.55-1.30)
--- NOTE | 2021-08-11 08:00 | NUR ---
AM NOTES AMBULATORY, ASSISTED IN BATH, TOOK BREAKFAST, NOT IN DISTRESS.
[2021-08-11] MEDS: THIAMINE HCL 100 MG TABLET PO SCH (08:26)
[2021-08-11] MEDS: FOLIC ACID 1 MG TABLET PO SCH (08:26)
[2021-08-11] MEDS: MULTIVITAMINS TAB 1 TABLET PO SCH (08:26)
[2021-08-11] MEDS: PANTOPRAZOLE SODIUM 40 MG TAB PO SCH ×2 (08:26→21:46)
[2021-08-11 08:37] VITALS: BP_SYST 120
[2021-08-11 08:42] LABS: BASOPHILS % (AUTO) 0.8 % (0.0-2.0); EOSINOPHILS # (AUTO) 0.1 K/uL (0.0-0.4); EOSINOPHILS % (AUTO) 2.4 % (0.0-4.0); LYMPHOCYTES % (AUTO) 28.8 % (20.5-51.5); MEAN CORPUSCULAR HEMOGLOBIN 35 pg (27-31); MEAN CORPUSCULAR HGB CONC 34 % (32-36); MEAN CORPUSCULAR VOLUME 103 fL (79.0-98.0); MONOCYTES # (AUTO) 0.5 K/uL (0.0-1.0); MONOCYTES % (AUTO) 14.9 % (1.7-9.3); NEUTROPHILS # (AUTO) 1.8 K/uL (1.8-7.7); NEUTROPHILS % (AUTO) 53.1 % (40.0-70.0); PLATELET COUNT (AUTO) 56 K/uL (130-430); RED CELL DISTRIBUTION WIDTH 18.8 % (9.0-15.0); WHITE BLOOD COUNT (AUTO) 3.3 K/uL (4.8-10.8)
[2021-08-11 09:24] LABS: RED BLOOD CELL COUNT(AUTO) 1.88 MIL/uL (4.2-6.2)
[2021-08-11 09:25] LABS: HEMATOCRIT 19.4 % (36-48); HEMOGLOBIN 6.5 g/dL (12.0-16.0)
--- NOTE | 2021-08-11 09:50 | NUR ---
ABNORMAL H/H WITH LOW H/H NOTIFIED DR. MONTANO AND DR GOETZ, TO GIVE ONE UNIT OF PRBC.
[2021-08-11 12:00] VITALS: BP_SYST 120
--- NOTE | 2021-08-11 12:00 | NUR ---
SEEN BY DR MONTANO MADE AWARE PATIENT HAS BILATERAL LOWER EDEMA, TO GIVE LASIX, DC IN FLUIDS.
[2021-08-11] MEDS ORDERED: FUROSEMIDE 20 MG/2 ML VIAL IVP ONE (12:15)
--- NOTE | 2021-08-11 15:20 | NUR ---
BT INITIATION: Consent signed agreeing to administration of blood. Blood has been type and crossmatched. Blood sent from blood bank. Information on unit of blood checked against patient wristband at bedside by two nurses. All information matches. Patient or responsible constitution party informed of potential complications associated with blood transfusion. Informed of possible transfusion reaction symptoms. Aware of need to notify nurse at once of itching, shortness of breath, flushing, feeling of impending doom, or other symptoms not previously present. Vital signs taken within 5 minutes prior to initiation of transfusion. RN will remain with patient for first 15 minutes of transfusion at which time vital signs will be re-assessed.
--- NOTE | 2021-08-11 16:00 | NUR ---
BLOOD TRANSFUSION NO REACTIONS NOTED FROM BLOOD TRANSFUSION, WILL CONTINUE TO MONITOR
[2021-08-11] MEDS ORDERED: ACETAMINOPHEN 325 MG TABLET PO PRN (16:30)
--- NOTE | 2021-08-11 17:00 | NUR ---
TEMP 99.4F ORAL HAD A ERLINDA, NOTIFIED DR MONTANO, ORDERED TO GIVE TYLENOL, PATIENT VOMITED, TYLENOL GIVEN VIA SUPP.
[2021-08-11] MEDS ORDERED: ACETAMINOPHEN 650 MG SUPP.RECT RC ONE (17:30)
[2021-08-11 19:00] VITALS: BP_SYST 108
--- NOTE | 2021-08-11 19:00 | NUR ---
NOTES RE-CHECKED TEMP 98.4F, ON POST BLOOD TRANSFUSION. NOT IN DISTRESS.
[2021-08-11 20:00] VITALS: BP_SYST 108
[2021-08-12] MEDS: ONDANSETRON HCL 4 MG/2 ML VIAL IVP PRN ×2 (06:55→22:55)
[2021-08-12] MEDS: HYDROcodone/ACETAMIN 5-325 MG TAB (NORCO/ VICODIN) PO PRN ×3 (06:57→22:15)
[2021-08-12 07:55] VITALS: BP_SYST 101
--- NOTE | 2021-08-12 07:58 | NUR ---
OPENING NOTE PATIENT IS FOUND IN BED EATING BREAKFAST WITH COMPLAINTS OF MILD PAIN AT THIS TIME, PAIN MEDICATIONS GIVEN BY COATING MACHINE FEEDER RN AT 0700. IV IS PATENT AND IN TACT.FALL, SAFETY AND ASPIRATION PRECAUTIONS IN PLACE. BED IS LOCKED AND IN LOWEST POSITION, TWO RAILS RAILS UP AND CALL LIGHT IN REACH. PLAN OF CARE DISCUSSED WITH PATIENT. WILL CONTINUE TO MONITOR.
[2021-08-12 08:11] LABS: ALBUMIN 1.9 g/dL (3.4-4.8); CALCIUM 7.7 mg/dL (8.4-11.0); CREATININE 2.34 mg/dL (0.55-1.30); POTASSIUM 4.2 mmol/L (3.5-5.1); TOTAL BILIRUBIN 2.8 mg/dL (0.0-1.0)
[2021-08-12] MEDS: MULTIVITAMINS TAB 1 TABLET PO SCH (08:32)
[2021-08-12] MEDS: THIAMINE HCL 100 MG TABLET PO SCH (08:32)
[2021-08-12] MEDS: PANTOPRAZOLE SODIUM 40 MG TAB PO SCH ×2 (08:32→21:03)
[2021-08-12] MEDS: FOLIC ACID 1 MG TABLET PO SCH (08:32)
[2021-08-12] MEDS ORDERED: OCTREOTIDE ACETATE 100 MCG/ML AMP SUBCUT ONE (09:15)
[2021-08-12] MEDS: MIDODRINE HCL 5 MG TABLET (PROAMATINE) PO SCH ×2 (09:35→21:03)
[2021-08-12 09:51] LABS: HEMATOCRIT 22.9 % (36-48); HEMOGLOBIN 7.6 g/dL (12.0-16.0); MEAN CORPUSCULAR HEMOGLOBIN 34 pg (27-31); MEAN CORPUSCULAR HGB CONC 33 % (32-36); MEAN CORPUSCULAR VOLUME 102 fL (79.0-98.0); PLATELET COUNT (AUTO) 60 K/uL (130-430); RED BLOOD CELL COUNT(AUTO) 2.25 MIL/uL (4.2-6.2); RED CELL DISTRIBUTION WIDTH 19.7 % (9.0-15.0); WHITE BLOOD COUNT (AUTO) 11.5 K/uL (4.8-10.8)
[2021-08-12] MEDS: OCTREOTIDE ACETATE 100 MCG/ML AMP SUBCUT SCH ×3 (10:06→21:21)
--- NOTE | 2021-08-12 10:15 | NUR ---
NURSING NOTE PATIENT HAD ONE EPISODE OF VOMITING , EMESIS WAS CLEAR/LIGHT BROWN IN COLOR, ABOUT 200ML. PATIENT HAD ZOFRAN LESS THEN SIX HOURS AGO, PRN ZOFRAN IS EVERY 6. PATIENT IS BETTER AT THIS TIME. WILL CONTINUE TO MONITOR.
[2021-08-12] MEDS ORDERED: ALBUMIN HUMAN 5% 250 ML IV ONE (11:00)
--- NOTE | 2021-08-12 11:16 | NUR ---
NURSING NOTE PATIENT C/O PAIN TO IV SITE, IV WOULD NOT FLUSH. NEW IV INSERTED BY RN. 22G TO LEFT HAND SL. IV IS PATENT , INTACT AND FLUSHES WELL. NO COMPLAINTS OF PAIN AT THIS TIME.
[2021-08-12 11:38] LABS: BAND % (MANUAL) 9 % (0-6); BASOPHILS % (MANUAL) 0 % (0-2); EOSINOPHILS % (MANUAL) 0 % (0-7); LYMPHOCYTES % (MANUAL) 14 % (20-46); MONOCYTES % (MANUAL) 9 % (0-11)
[2021-08-12 12:00] VITALS: BP_SYST 121
--- NOTE | 2021-08-12 12:30 | NUR ---
NURSING NOTE PATIENT HOME MEDICATIONS LIST WAS FAXED FROM [facility]. HOME MEDICATIONS WERE PUT INTO THE COMPUTER AND DOCTOR SURESH WAS CALLED TO RECONCILE THE HOME MEDICATIONS. PER DOCTOR SURESH, ALL HOME MEDICATIONS WILL BE CONTINUED.
[2021-08-12] MEDS ORDERED: ONDA4TAB5 PO (12:42)
[2021-08-12] MEDS ORDERED: ESCI10TA PO (12:43)
[2021-08-12] MEDS ORDERED: FURO-149 PO (12:44)
[2021-08-12] MEDS ORDERED: PROP10TA10 PO (12:48)
[2021-08-12] MEDS ORDERED: SPIR25TA6 PO (12:51)
[2021-08-12] MEDS ORDERED: MAGN400T10 PO (12:54)
[2021-08-12] MEDS ORDERED: PRO40 PO (13:04)
[2021-08-12] MEDS ORDERED: ONDANSETRON 4 MG ODT TAB PO PRN (14:45)
[2021-08-12 16:47] VITALS: BP_SYST 105
[2021-08-12 17:12] LABS: BILIRUBIN,URINE 1+ (NEGATIVE); BLOOD, URINE 2+ (NEGATIVE); COLOR,URINE YELLOW (YELLOW); GLUCOSE,URINE NEGATIVE (NEGATIVE); KETONES,URINE TRACE (NEGATIVE); LEUKOCYTE ESTERASE ,URINE NEGATIVE (NEGATIVE); NITRITE, URINE NEGATIVE (NEGATIVE); PH,URINE 5.5 (5.0-8.0); PROTEIN URINE TRACE (NEGATIVE); UROBILINOGEN,URINE 0.2 (0.2-1.0)
[2021-08-12 18:12] LABS: CLARITY/URINE HAZY (CLEAR)
[2021-08-12 18:19] LABS: BACTERIA,URINE FEW /HPF (None Seen); MUCUS,URINE None Seen /LPF (None Seen)
--- NOTE | 2021-08-12 18:49 | NUR ---
CLOSING NOTE PATIENT IS FOUND IN BED EATING DINNER WITH NO COMPLAINTS OF PAIN OR DISCOMFORT AT THIS TIME. IV IS PATENT AND IN TACT.FALL, SAFETY AND ASPIRATION PRECAUTIONS IN PLACE. BED IS LOCKED AND IN LOWEST POSITION, TWO RAILS RAILS UP AND CALL LIGHT IN REACH. ALL NEEDS MET THROUGHOUT SHIFT. WILL ENDORSE TO MARKET GARDENER.
--- NOTE | 2021-08-12 19:30 | NUR ---
Opening notes Received report from day nurse. Pt resting in bed, awake, alertx4. On room air non labored and no distress at this time. IV on left hand SL patent and intact not discomfort. Pt ate 25% dinner and cannot tolerated. Provided crackers and juice. Bed to lowest/locked. Call light within reach. On fall/aspiration precaution.
[2021-08-12 20:00] VITALS: BP_SYST 109
[2021-08-12] MEDS: MAGNESIUM OXIDE 400 MG TABLET PO SCH (21:01)
[2021-08-12] MEDS: PROPRANOLOL HCL 10 MG TABLET (INDERAL) PO SCH (21:03)
[2021-08-13] VITALS: BP_SYST 112
--- NOTE | 2021-08-13 | NUR ---
note Assisted pt to the bathroom with steady gait. No SOB noted
[2021-08-13] MEDS: OCTREOTIDE ACETATE 100 MCG/ML AMP SUBCUT SCH ×3 (05:20→21:15)
[2021-08-13] MEDS: HYDROcodone/ACETAMIN 5-325 MG TAB (NORCO/ VICODIN) PO PRN ×3 (06:42→21:14)
--- NOTE | 2021-08-13 07:02 | NUR ---
Closing note Pt resting in bed, awake, alertx4. On room air non labored and no distress at this time. IV on left hand SL patent and intact not discomfort. Bed to lowest/locked. Call light within reach. On fall/aspiration precaution.
[2021-08-13 07:54] VITALS: BP_SYST 132
[2021-08-13] MEDS: ONDANSETRON HCL 4 MG/2 ML VIAL IVP PRN ×3 (08:18→21:16)
[2021-08-13 08:32] LABS: ALBUMIN 2.1 g/dL (3.4-4.8); CALCIUM 7.9 mg/dL (8.4-11.0); CREATININE 2.53 mg/dL (0.55-1.30); POTASSIUM 4.2 mmol/L (3.5-5.1); TOTAL BILIRUBIN 2.6 mg/dL (0.0-1.0)
[2021-08-13] MEDS ORDERED: ESCITALOPRAM OXALATE 10 MG TABLET PO SCH (09:00)
[2021-08-13] MEDS ORDERED: SPIRONOLACTONE 25 MG TABLET (ALDACTONE) PO SCH (09:00)
[2021-08-13] MEDS ORDERED: FUROSEMIDE 40 MG TABLET PO SCH (09:00)
--- NOTE | 2021-08-13 09:00 | NUR ---
pt was given earlier zofran after pt had emesis after eating breakfast.
[2021-08-13] MEDS: MIDODRINE HCL 5 MG TABLET (PROAMATINE) PO SCH ×2 (09:09→21:15)
[2021-08-13] MEDS: PANTOPRAZOLE SODIUM 40 MG TAB PO SCH (09:09)
[2021-08-13] MEDS: MAGNESIUM OXIDE 400 MG TABLET PO SCH ×2 (09:09→21:14)
[2021-08-13] MEDS: FOLIC ACID 1 MG TABLET PO SCH (09:09)
[2021-08-13] MEDS: THIAMINE HCL 100 MG TABLET PO SCH (09:09)
[2021-08-13] MEDS: CITALOPRAM HYDROBROMIDE 20 MG TABLET PO SCH (09:10)
[2021-08-13] MEDS: MULTIVITAMINS TAB 1 TABLET PO SCH (09:10)
[2021-08-13] MEDS: PROPRANOLOL HCL 10 MG TABLET (INDERAL) PO SCH ×2 (09:11→21:14)
[2021-08-13] MEDS: FAMOTIDINE 20 MG TABLET PO SCH (09:15)
--- NOTE | 2021-08-13 12:20 | NUR ---
pt given zofran before lunch to see it pt will have no vomiting after meal.
--- NOTE | 2021-08-13 13:30 | NUR ---
pt had another emesis even after zofran given before lunch.
[2021-08-13 16:37] VITALS: BP_SYST 119
--- NOTE | 2021-08-13 16:44 | NUR ---
pt given po zofran. will monitor pt.
--- NOTE | 2021-08-13 18:44 | NUR ---
PT HAS BEEN STABLE, ZOFRAN IVP , VOMITED 2X TODAY, NO BLOOD NOTED, PT ALSO HAD BM WITH NO BLOOD. PT GIVEN PO ZOFRAN AND PT ABLE TO TOLERATED DINNER OF NOW. ALL NEEDS MET AND ATTENDED TO. WILL ENDORSE TO NIGHT NURSE.
--- NOTE | 2021-08-13 19:15 | NUR ---
OPENING NOTES Patient resting in bed - no s/s pain or distress noted. Respirations even and unlabored - head of bed elevated. IV site patent - no s/s redness, infection, or infiltration. Bed locked and in lowest position. Call light within reach.
[2021-08-13 20:00] VITALS: BP_SYST 126
[2021-08-14] VITALS: BP_SYST 114
[2021-08-14] MEDS: OCTREOTIDE ACETATE 100 MCG/ML AMP SUBCUT SCH ×4 (06:19→22:00)
--- NOTE | 2021-08-14 06:40 | NUR ---
CALLED DR. COLBERT REGARDING 06/26 ABDOMINAL PAIN Doctor does not order anything for pain at this time, stating he has talked to her about this issue.
[2021-08-14] MEDS: ONDANSETRON HCL 4 MG/2 ML VIAL IVP PRN ×2 (06:59→12:51)
--- NOTE | 2021-08-14 07:28 | NUR ---
CLOSING NOTES Patient resting in bed - no s/s pain or distress noted. Respirations even and unlabored - head of bed elevated. IV site patent - no s/s redness, infection, or infiltration. Bed locked and in lowest position. Call light within reach
[2021-08-14 07:53] LABS: CALCIUM 7.8 mg/dL (8.4-11.0); CREATININE 2.56 mg/dL (0.55-1.30); POTASSIUM 4.3 mmol/L (3.5-5.1); TOTAL BILIRUBIN 2.1 mg/dL (0.0-1.0)
[2021-08-14 08:00] VITALS: BP_SYST 109
--- NOTE | 2021-08-14 08:15 | NUR ---
OPENING NOTE Patient is resting in bed A&Ox 4 no complaint of pain or discomfort, no signs or symptoms of respiratory distress, IV is infusing, no signs or symptoms of infiltration. Educated patient on plan of care, patient verbalized understanding. Bed is in lowest position, call light within reach, fall and aspiration precautions are in place. will continue to monitor.
[2021-08-14] MEDS: FAMOTIDINE 20 MG TABLET PO SCH (08:20)
[2021-08-14] MEDS: THIAMINE HCL 100 MG TABLET PO SCH (08:21)
[2021-08-14] MEDS: MIDODRINE HCL 5 MG TABLET (PROAMATINE) PO SCH ×2 (08:21→21:57)
[2021-08-14] MEDS: MULTIVITAMINS TAB 1 TABLET PO SCH (08:21)
[2021-08-14] MEDS: PROPRANOLOL HCL 10 MG TABLET (INDERAL) PO SCH ×2 (08:22→22:02)
[2021-08-14] MEDS: PANTOPRAZOLE SODIUM 40 MG TAB PO SCH (08:23)
[2021-08-14] MEDS: MAGNESIUM OXIDE 400 MG TABLET PO SCH ×2 (08:23→21:57)
[2021-08-14] MEDS: FOLIC ACID 1 MG TABLET PO SCH (08:23)
[2021-08-14] MEDS: CITALOPRAM HYDROBROMIDE 20 MG TABLET PO SCH (08:23)
[2021-08-14 08:40] LABS: EOSINOPHILS # (AUTO) 0.1 K/uL (0.0-0.4); HEMATOCRIT 26.5 % (36-48); LYMPHOCYTES # (AUTO) 1.6 K/uL (1.0-5.5); LYMPHOCYTES % (AUTO) 26.7 % (20.5-51.5); MEAN CORPUSCULAR HEMOGLOBIN 35 pg (27-31); MEAN CORPUSCULAR HGB CONC 34 % (32-36); MEAN CORPUSCULAR VOLUME 101 fL (79.0-98.0); MONOCYTES # (AUTO) 0.7 K/uL (0.0-1.0); MONOCYTES % (AUTO) 10.8 % (1.7-9.3); PLATELET COUNT (AUTO) 111 K/uL (130-430); RED BLOOD CELL COUNT(AUTO) 2.61 MIL/uL (4.2-6.2); RED CELL DISTRIBUTION WIDTH 18.9 % (9.0-15.0)
[2021-08-14 08:50] LABS: BASOPHILS % (AUTO) 0.3 % (0.0-2.0); NEUTROPHILS # (AUTO) 3.7 K/uL (1.8-7.7); NEUTROPHILS % (AUTO) 60.2 % (40.0-70.0)
--- NOTE | 2021-08-14 09:20 | NUR ---
RN note Paged Dr. Khoury regarding patient labs as requested by .
--- NOTE | 2021-08-14 12:20 | NUR ---
MD rounds Spoke with Dr. Khoury regarding patients labs, new orders received and placed.
[2021-08-14] MEDS ORDERED: ALBUMIN HUMAN 25% 250 ML IV ONE (13:00)
[2021-08-14 16:00] VITALS: BP_SYST 120
--- NOTE | 2021-08-14 18:34 | NUR ---
Closing note Patient is resting in bed A&Ox 4 complains of abdominal pain, does not want current PRN medication. Will inform MD. No signs or symptoms of respiratory distress, IV is infusing, no signs or symptoms of infiltration. All needs were met. Bed is in lowest position, call light within reach, fall and aspiration precautions are in place. Will endorse report to seismograph operator.
--- NOTE | 2021-08-14 19:30 | NUR ---
OPENING NOTE PT IN BED WITH RESPIRATIONS EVEN AND UNLABORED ON RA. NO SIGNS OF DISTRESS NOTED. PT CURRENTLY DENIES SOB, PAIN OR NAUSEA. RIGHT HAND 22G IV PATENT AND INTACT. FLUSHES WELL. NO SIGNS OF INFILTRATION NOTED. PT DENIES PAIN AT INSERTION SITE. BED IN LOWEST AND LOCKED POSITION. CALL LIGHT WITHIN REACH. SAFETY PRECAUTIONS IN PLACE. WILL CONTINUE TO MONITOR.
[2021-08-14 20:00] VITALS: BP_SYST 119
[2021-08-15 00:46] VITALS: BP_SYST 118
--- NOTE | 2021-08-15 04:44 | NUR ---
ROUNDS PT SLEEPING. RESPIRATIONS EVEN AND UNLABORED ON RA. NO SIGNS OF DISTRESS NOTED. WILL CONTINUE TO MONITOR.
[2021-08-15] MEDS: OCTREOTIDE ACETATE 100 MCG/ML AMP SUBCUT SCH ×3 (05:45→22:13)
--- NOTE | 2021-08-15 06:36 | NUR ---
CLOSING NOTES PT LAYING IN BED WITH RESPIRATIONS EVEN AND UNLABORED ON RA. NO SIGNS OF DISTRESS NOTED. RIGHT HAND 22G IV PATENT AND INTACT. SALINE LOCKED. FLUSHES WELL. PT DENIES PAIN AND NAUSEA. BED IN LOWEST AND LOCKED POSITION. ALL NEEDS MET THROUGHOUT THE NIGHT. CALL LIGHT WITHIN REACH. SAFETY PRECAUTIONS IN PLACE. WILL ENDORSE TO DAY RN.
[2021-08-15 06:58] LABS: BASOPHILS % (AUTO) 0.6 % (0.0-2.0); EOSINOPHILS # (AUTO) 0.1 K/uL (0.0-0.4); EOSINOPHILS % (AUTO) 1.6 % (0.0-4.0); HEMATOCRIT 22.5 % (36-48); HEMOGLOBIN 8.1 g/dL (12.0-16.0); LYMPHOCYTES # (AUTO) 1.1 K/uL (1.0-5.5); LYMPHOCYTES % (AUTO) 25.1 % (20.5-51.5); MEAN CORPUSCULAR HEMOGLOBIN 40 pg (27-31); MEAN CORPUSCULAR HGB CONC 36 % (32-36); MEAN CORPUSCULAR VOLUME 111 fL (79.0-98.0); MONOCYTES # (AUTO) 0.6 K/uL (0.0-1.0); MONOCYTES % (AUTO) 13.4 % (1.7-9.3); NEUTROPHILS # (AUTO) 2.6 K/uL (1.8-7.7); NEUTROPHILS % (AUTO) 59.3 % (40.0-70.0); PLATELET COUNT (AUTO) 103 K/uL (130-430); RED BLOOD CELL COUNT(AUTO) 2.02 MIL/uL (4.2-6.2); RED CELL DISTRIBUTION WIDTH 19.6 % (9.0-15.0); WHITE BLOOD COUNT (AUTO) 4.4 K/uL (4.8-10.8)
[2021-08-15 07:21] LABS: ALBUMIN 2.5 g/dL (3.4-4.8); CALCIUM 7.9 mg/dL (8.4-11.0); CREATININE 2.05 mg/dL (0.55-1.30); POTASSIUM 4.5 mmol/L (3.5-5.1); TOTAL BILIRUBIN 2.1 mg/dL (0.0-1.0)
--- NOTE | 2021-08-15 07:50 | NUR ---
OPENING NOTE Patient is resting in bed A&Ox 4 no complaint of pain , patient complains of nausea and did have one episode of vomiting. Will provide PRN medication. No signs or symptoms of respiratory distress, IV is infusing, no signs or symptoms of infiltration. Educated patient on plan of care, patient verbalized understanding. Bed is in lowest position, call light within reach, fall and aspiration precautions are in place. Will continue to monitor.
[2021-08-15 08:00] VITALS: BP_SYST 136
[2021-08-15] MEDS: ONDANSETRON HCL 4 MG/2 ML VIAL IVP PRN (08:15)
[2021-08-15] MEDS: THIAMINE HCL 100 MG TABLET PO SCH (08:18)
[2021-08-15] MEDS: MIDODRINE HCL 5 MG TABLET (PROAMATINE) PO SCH ×2 (08:18→22:03)
[2021-08-15] MEDS: CITALOPRAM HYDROBROMIDE 20 MG TABLET PO SCH (08:18)
[2021-08-15] MEDS: MULTIVITAMINS TAB 1 TABLET PO SCH (08:19)
[2021-08-15] MEDS: FAMOTIDINE 20 MG TABLET PO SCH (08:19)
[2021-08-15] MEDS: MAGNESIUM OXIDE 400 MG TABLET PO SCH ×2 (08:19→22:03)
[2021-08-15] MEDS: FOLIC ACID 1 MG TABLET PO SCH (08:20)
[2021-08-15] MEDS: PANTOPRAZOLE SODIUM 40 MG TAB PO SCH (08:20)
[2021-08-15] MEDS: PROPRANOLOL HCL 10 MG TABLET (INDERAL) PO SCH ×2 (08:20→22:10)
[2021-08-15 11:24] VITALS: BP_SYST 137
--- NOTE | 2021-08-15 12:30 | NUR ---
MD rounds assessed patient and recommends patient be transferred to [facility] for higher level of care, machine adjuster leader case trim Bry is aware.
--- NOTE | 2021-08-15 13:32 | NUR ---
CM note:per dr. Alexandre Bustamante, GI requested pt transfer to [facility] for liver transplant DT MELD 24 condition. I s/w Barbra, Prom[employer] vocational case manager, said the transfer is not authorized and advised pt to be discharged and to f/u with [facility] as out patient. Dr Bustamante made aware, he stated " okay for now, kidney function is starting to improve".
[2021-08-15 15:33] VITALS: BP_SYST 132
--- NOTE | 2021-08-15 17:49 | NUR ---
Nutrition F/U: Admitting Diagnosis UGIB Reviewed Pertinent Medical/Surgical Hx Medical Record Patient Medical History Comment: Pt w/: Acute UGIB, Severe anemia 2/2 acute blood loss, Chronic alcoholic liver disease w/ cirrhosis, hypoalbuminemia, CKD per MD notes. 08/06 S/P paracentesis -4.6 L removed. PMH: ascites, Subjective Information EMR reviewed, I/O balance w/ negative output, reduced fluid intake gradually. BM x 1 today. Abdomen is soft, nontender. distended with ascites. Bowel sounds are positive. PO intake varied of 45% x 13 meals. Diet had advance to regular since last RD reviewed. Skin w/ right arm ecchymosis. Noted, abnormal renal lab values. Current PO intake appears not meeting Pt may benefit from ONS for additional kcal and protein intake to help meet needs. Current Diet Order/Nutrition Support Regular diet x 6days Patient/Significant Other Able To Verbalize Education Provided Indicated Pertinent Medications Thiamine, MVI, Folic acid, Zofran, pepcid Pertinent Labs 08/15 WBC: 4.4L, H/H:8.1/22.5L, BG 120H, BUN 32H, Cre 2.05H Height (Feet) 5 feet 1.00 inches Weight (Pounds) 130 pounds/ 58.599132 kilograms Body Mass Index 24.56 kg/m2 %IBW 124 [place]/Adjusted Body Weight 105#/ 48kg Recent Weight Change No Weight Status Appropriate Gastrointestinal Symptoms None Food Allergies No Usual Diet At Home regular diet per pt. Estimated Energy Expenditure (kcals/day) 0555-0461 Kcal/day (25-30 kcal/kg CBW for maintenance) Estimated Protein Required (g/day) 59gm/day (1gm/kg CBW for Renal Dz predialysis) Estimated Fluid Required (l/day) per MD (CKD) Problem/Etiology/Signs/Symptoms Altered Nutrition Related Lab Values RT organ dysfunction that leads to biochemical changes such as kidney AEB Abnormal BUN, Cr, GFR (kidney disease) Expected Outcomes/Goals Monitor appetite and PO intake w/ goal of pt meeting more than 75% of estimated nutritional needs, labs trending WNL, normal GI function, skin integrity/wt maintenance. Dietitian Recommendations * Nepro 1 carton BID ( provide additional 700kcal, 40g pro *Encourage PO intake q meal. Follow Up High Risk: F/U in 2-3 days
--- NOTE | 2021-08-15 18:01 | NUR ---
RD recommendation: * Nepro 1 carton BID ( provide additional 700kcal, 40g pro *Encourage PO intake q meal. Please refer to nutrition assessment for details. CN,RD
--- NOTE | 2021-08-15 18:35 | NUR ---
Closing note Patient is resting in bed A&Ox 4 no complaint of pain or discomfort. Will provide PRN medication. No signs or symptoms of respiratory distress, IV is infusing, no signs or symptoms of infiltration.All needs were met. Bed is in lowest position, call light within reach, fall and aspiration precautions are in place. Will endorse report to power and recovery shift engineer.
--- NOTE | 2021-08-15 19:00 | NUR ---
OPENING NOTES PATIENT RESTING IN BED, HOB ELEVATED, CALL LIGHT WITHIN REACH. BED IN LOWEST POSITION, BED ALARM ON. WILL CONTINUE TO MONITOR.
[2021-08-15 20:00] VITALS: BP_SYST 123
[2021-08-15] MEDS ORDERED: OCTREOTIDE ACETATE 200 MCG/1 ML 5ML VIAL ONE (22:06)
[2021-08-16] VITALS: BP_SYST 114
--- NOTE | 2021-08-16 | NUR ---
CHECKED TO SEE IF PATIENT NEEDED ANYTHING. PATIENT WANTS TO CONTINUE RESTING. WILL CONTINUE TO MONITOR.
[2021-08-16] MEDS: OCTREOTIDE ACETATE 100 MCG/ML AMP SUBCUT SCH (06:15)
--- NOTE | 2021-08-16 06:47 | NUR ---
CLOSING NOTES PATIENT RESTING IN BED, HOB ELEVATED, CALL LIGHT WITHIN REACH. BED IN LOWEST POSITION, BED ALARM ON. ALL NEEDS MET THROUGHOUT SHIFT.
[2021-08-16 08:00] VITALS: BP_SYST 115
--- NOTE | 2021-08-16 08:00 | NUR ---
Initial Note Patient asleep in bed, wakes easily to verbal stimuli. Oriented x 4. Reports pain 7/10 to abdomen, will administer pain medication as ordered. Sat up to eat breakfast. Placed call light in reach and bed placed in lowest position. Encouraged to call.
[2021-08-16 08:13] LABS: ALBUMIN 2.2 g/dL (3.4-4.8); CALCIUM 8.1 mg/dL (8.4-11.0); CREATININE 1.64 mg/dL (0.55-1.30); POTASSIUM 4.3 mmol/L (3.5-5.1)
[2021-08-16] MEDS: PROPRANOLOL HCL 10 MG TABLET (INDERAL) PO SCH ×2 (09:00→21:21)
[2021-08-16 09:20] LABS: BASOPHILS % (AUTO) 0.8 % (0.0-2.0); EOSINOPHILS # (AUTO) 0.1 K/uL (0.0-0.4); EOSINOPHILS % (AUTO) 1.8 % (0.0-4.0); HEMATOCRIT 24.1 % (36-48); LYMPHOCYTES # (AUTO) 1.6 K/uL (1.0-5.5); LYMPHOCYTES % (AUTO) 33.9 % (20.5-51.5); MEAN CORPUSCULAR HEMOGLOBIN 34 pg (27-31); MEAN CORPUSCULAR HGB CONC 33 % (32-36); MEAN CORPUSCULAR VOLUME 101 fL (79.0-98.0); MONOCYTES # (AUTO) 0.6 K/uL (0.0-1.0); MONOCYTES % (AUTO) 12.7 % (1.7-9.3); NEUTROPHILS # (AUTO) 2.4 K/uL (1.8-7.7); NEUTROPHILS % (AUTO) 50.8 % (40.0-70.0); PLATELET COUNT (AUTO) 104 K/uL (130-430); RED BLOOD CELL COUNT(AUTO) 2.39 MIL/uL (4.2-6.2); RED CELL DISTRIBUTION WIDTH 18.8 % (9.0-15.0); WHITE BLOOD COUNT (AUTO) 4.8 K/uL (4.8-10.8)
[2021-08-16] MEDS: MAGNESIUM OXIDE 400 MG TABLET PO SCH ×2 (09:37→21:10)
[2021-08-16] MEDS: CITALOPRAM HYDROBROMIDE 20 MG TABLET PO SCH (09:38)
[2021-08-16] MEDS: MULTIVITAMINS TAB 1 TABLET PO SCH (09:39)
[2021-08-16] MEDS: THIAMINE HCL 100 MG TABLET PO SCH (09:39)
[2021-08-16] MEDS: FAMOTIDINE 20 MG TABLET PO SCH (09:40)
[2021-08-16] MEDS: MIDODRINE HCL 5 MG TABLET (PROAMATINE) PO SCH (09:40)
[2021-08-16] MEDS: FOLIC ACID 1 MG TABLET PO SCH (09:40)
--- NOTE | 2021-08-16 11:00 | NUR ---
MD Rounds Dr. North at bedside.
[2021-08-16 11:23] VITALS: BP_SYST 140
[2021-08-16 15:32] VITALS: BP_SYST 131
--- NOTE | 2021-08-16 16:00 | NUR ---
Notes Patient lying in bed watching TV. Pain is controlled at this time. No distress. Placed call light in reach and bed in lowest position. Encouraged to call.
--- NOTE | 2021-08-16 18:34 | NUR ---
Closing Note Patient sitting up in bed, just finished eating dinner. No pain or distress noted at this time, all needs met. Call light left within reach and bed placed in lowest position. Will endorse to night nurse.
--- NOTE | 2021-08-16 19:20 | NUR ---
OPENING NOTES PATIENT RESTING IN BED, HOB ELEVATED, BED IN LOWEST POSITION, CALL LIGHT WITHIN REACH. ENDORSED BY AM SHIFT THAT PATIENT WILL PROBABLY BE DISCHARGED HOME, WILL HAVE TO TRAVEL TO [facility] BY SELF FOR ADMISSION. WILL CONTINUE TO MONITOR.
[2021-08-16 20:00] VITALS: BP_SYST 121
[2021-08-17] VITALS: BP_SYST 117
--- NOTE | 2021-08-17 | NUR ---
ROUNDS PATIENT RESTING IN BED, BED IN LOWEST POSITION, CALL LIGHT WITHIN REACHED. PATIENT DENIES ANY DISCOMFORT. WILL CONTINUE TO MONITOR.
--- NOTE | 2021-08-17 06:06 | NUR ---
CLOSING NOTES PATIENT IS RESTING IN BED, HOB ELEVATED, CALL LIGHT WITHIN REACH, BED IN LOWEST POSITION. ALL NEEDS MET THROUGHOUT SHIFT. WILL ENDORSE TO ONCOMNIG SHIFT.
[2021-08-17 06:21] LABS: CALCIUM 8.3 mg/dL (8.4-11.0); CREATININE 1.56 mg/dL (0.55-1.30); POTASSIUM 4.8 mmol/L (3.5-5.1)
[2021-08-17 08:00] VITALS: BP_SYST 130
--- NOTE | 2021-08-17 08:00 | NUR ---
Initial Note Patient lying in bed awake and oriented x 4. States MD Sierra visited patient and notified on plan of care. No pain or distress at this time. Call light and bedside table within reach. Bed in lowest position. Encouraged to call.
[2021-08-17 08:37] LABS: BASOPHILS # (AUTO) 0.1 K/uL (0.0-0.2); BASOPHILS % (AUTO) 1.5 % (0.0-2.0); EOSINOPHILS # (AUTO) 0.1 K/uL (0.0-0.4); EOSINOPHILS % (AUTO) 1.9 % (0.0-4.0); HEMATOCRIT 23.5 % (36-48); LYMPHOCYTES # (AUTO) 1.5 K/uL (1.0-5.5); LYMPHOCYTES % (AUTO) 28.5 % (20.5-51.5); MEAN CORPUSCULAR HEMOGLOBIN 34 pg (27-31); MEAN CORPUSCULAR HGB CONC 34 % (32-36); MEAN CORPUSCULAR VOLUME 101 fL (79.0-98.0); MONOCYTES # (AUTO) 0.6 K/uL (0.0-1.0); MONOCYTES % (AUTO) 11.9 % (1.7-9.3); NEUTROPHILS # (AUTO) 2.9 K/uL (1.8-7.7); NEUTROPHILS % (AUTO) 56.2 % (40.0-70.0); PLATELET COUNT (AUTO) 102 K/uL (130-430); RED BLOOD CELL COUNT(AUTO) 2.33 MIL/uL (4.2-6.2); RED CELL DISTRIBUTION WIDTH 18.9 % (9.0-15.0); WHITE BLOOD COUNT (AUTO) 5.2 K/uL (4.8-10.8)
[2021-08-17] MEDS: FOLIC ACID 1 MG TABLET PO SCH (08:55)
[2021-08-17] MEDS: THIAMINE HCL 100 MG TABLET PO SCH (08:55)
[2021-08-17] MEDS: PROPRANOLOL HCL 10 MG TABLET (INDERAL) PO SCH ×2 (08:56→20:55)
[2021-08-17] MEDS: MULTIVITAMINS TAB 1 TABLET PO SCH (08:56)
[2021-08-17] MEDS: FAMOTIDINE 20 MG TABLET PO SCH (08:56)
[2021-08-17] MEDS: CITALOPRAM HYDROBROMIDE 20 MG TABLET PO SCH (08:56)
[2021-08-17] MEDS: MAGNESIUM OXIDE 400 MG TABLET PO SCH ×2 (08:56→20:54)
--- NOTE | 2021-08-17 12:00 | NUR ---
Notes Patient awake and eating lunch. All needs met at this time. No pain or distress. Call light in reach, encouraged to call. Bed in lowest position.
[2021-08-17 12:04] VITALS: BP_SYST 131
--- NOTE | 2021-08-17 16:00 | NUR ---
Notes Patient lying in bed watching TV. No pain or distress. Call light and bedside table in reach. Bed in lowest position. Encouraged to call.
[2021-08-17 16:25] VITALS: BP_SYST 114
--- NOTE | 2021-08-17 18:31 | NUR ---
Closing Note Patient accidentally removed IV. Eating dinner now. No pain or distress. Bed in lowest position, call light in reach. Will endorse to night nurse.
--- NOTE | 2021-08-17 19:35 | NUR ---
ROUNDS PATIENT IN BED, WATCHING TV, DENIES ANY PAIN AT THIS TIME. ASSESSMENT DONE AND DOCUMENTED. SEE FLOWSHEET. NEEDS ATTENDED TO. CALL LIGHT PLACED WITHIN REACH.
[2021-08-17 20:00] VITALS: BP_SYST 121
[2021-08-18] VITALS: BP_SYST 125
--- NOTE | 2021-08-18 00:12 | NUR ---
PATIENT RESTING: Patient resting quietly. No acute distress noted. Vital signs within normal range.
--- NOTE | 2021-08-18 03:51 | NUR ---
ROUNDS PATIENT ASLEEP, RESPIRATIONS EVEN AND UNLABORED, WILL CONTINUE TO MONITOR.
--- NOTE | 2021-08-18 07:30 | NUR ---
AM ROUNDS: PATIENT ON THE BED,AWAKE,ALERT AND ORIENTED X4. NO IV ACCESS,PATIENT WANTS TO HELD IT FOR NOW IF DISCHARGE HOME DOES NOT WANT IV INSERTION.CALL LIGHT WITH IN REACH. BED LOCKED AT LOWEST POSITION. STABLE.NO COMPLAINED MADE.
[2021-08-18 07:37] LABS: BASOPHILS % (AUTO) 0.8 % (0.0-2.0); EOSINOPHILS # (AUTO) 0.1 K/uL (0.0-0.4); EOSINOPHILS % (AUTO) 2.3 % (0.0-4.0); HEMATOCRIT 22.2 % (36-48); HEMOGLOBIN 7.8 g/dL (12.0-16.0); LYMPHOCYTES # (AUTO) 1.8 K/uL (1.0-5.5); LYMPHOCYTES % (AUTO) 36.4 % (20.5-51.5); MEAN CORPUSCULAR HEMOGLOBIN 39 pg (27-31); MEAN CORPUSCULAR HGB CONC 35 % (32-36); MEAN CORPUSCULAR VOLUME 111 fL (79.0-98.0); MONOCYTES # (AUTO) 0.6 K/uL (0.0-1.0); MONOCYTES % (AUTO) 11.9 % (1.7-9.3); NEUTROPHILS # (AUTO) 2.4 K/uL (1.8-7.7); NEUTROPHILS % (AUTO) 48.6 % (40.0-70.0); PLATELET COUNT (AUTO) 95 K/uL (130-430); RED CELL DISTRIBUTION WIDTH 19.1 % (9.0-15.0)
[2021-08-18 08:00] LABS: RED BLOOD CELL COUNT(AUTO) 1.99 MIL/uL (4.2-6.2)
[2021-08-18 08:23] VITALS: BP_SYST 121
[2021-08-18] MEDS: THIAMINE HCL 100 MG TABLET PO SCH (09:10)
[2021-08-18] MEDS: FOLIC ACID 1 MG TABLET PO SCH (09:10)
[2021-08-18] MEDS: MAGNESIUM OXIDE 400 MG TABLET PO SCH (09:10)
[2021-08-18] MEDS: PROPRANOLOL HCL 10 MG TABLET (INDERAL) PO SCH (09:10)
[2021-08-18] MEDS: MULTIVITAMINS TAB 1 TABLET PO SCH (09:10)
[2021-08-18] MEDS: CITALOPRAM HYDROBROMIDE 20 MG TABLET PO SCH (09:11)
[2021-08-18] MEDS: FAMOTIDINE 20 MG TABLET PO SCH (09:11)
--- NOTE | 2021-08-18 10:30 | NUR ---
BRP: PATIENT AMBULATES IN THE TOILET.NO PROBLEM.
[2021-08-18 12:00] VITALS: BP_SYST 118
[2021-08-18 15:46] VITALS: BP_SYST 118
--- NOTE | 2021-08-18 17:35 | NUR ---
D/C Patient Patient given medication reconciliation form and D/C instructions. Exit Care provided. Patient verbalized understanding. MD discussed with patient the results and treatment provided. Ambulatory with steady gait for discharge to home. Patient in stable condition, ID band removed. No iv access noted. Rx given to patient. Patient educated on pain management. All belongings sent with patient.
== END 2021-08-18 17:35 | disposition home or self-care (01) | DRG 241 ==
LOC: SED 01:55 → SIC 06:32 → STU 08-04 23:09 → SMU 08-07 21:41
PROVIDERS: ADMIT Family Medicine; ATTEND Family Medicine
PROC: 30233N1 Transfusion of Nonautologous Red Blood Cells into Peripheral Vein, Percutaneous Approach (ICD-10-PCS; 2021-08-03)
PROC: 0DB78ZX Excision of Stomach, Pylorus, Via Natural or Artificial Opening Endoscopic, Diagnostic (ICD-10-PCS; principal; 2021-08-03 08:30)
PROC: 0W9G3ZZ Drainage of Peritoneal Cavity, Percutaneous Approach (ICD-10-PCS; 2021-08-06)
DX: K29.71 Gastritis, unspecified, with bleeding (principal); N17.0 Acute kidney failure with tubular necrosis; D61.818 Other pancytopenia; E44.0 Moderate protein-calorie malnutrition; K22.11 Ulcer of esophagus with bleeding; D69.6 Thrombocytopenia, unspecified; D62 Acute posthemorrhagic anemia; E88.09 Other disorders of plasma-protein metabolism, not elsewhere classified; Z98.891 History of uterine scar from previous surgery; K70.31 Alcoholic cirrhosis of liver with ascites; D73.1 Hypersplenism; K76.6 Portal hypertension; K31.89 Other diseases of stomach and duodenum; Z20.822 Contact with and (suspected) exposure to COVID-19; F10.10 Alcohol abuse, uncomplicated; Y90.9 Presence of alcohol in blood, level not specified; N18.9 Chronic kidney disease, unspecified
CPT/HCPCS: 36415; 36430; 43235; 49083; 71045; 76376; 76700-TC; 80048; 80053; 80074; 81000; 82105; 82150; 82607; 82728; 82746; 83051; 83540; 83550; 83690; 83735; 83880; 84484; 84703; 85007; 85014; 85025; 85027; 85048; 85049-TC; 85610-TC; 85730-TC; 86886; 86900; 86901; 86920; 87081; 93005; 96361; 96365; 96368; 96375; 99291; C1729; C9113; G0378; J0696; J1940; J2175; J2250; J2270; J2354; J2405; J2765; J3430; J7050; P9021; P9041; P9046; Q0162; Q9964